=== PATIENT | female | born 1990 | race Caucasian/White ===

== ENCOUNTER 2022-12-24 07:14 | Day surgery (SDC) | payer BC ==
[~2022-12-24] VITALS: Ht 312.4 cm; Wt 75.3 kg
[~2022-12-24 07:14] MED LIST: ATIVAN0.5 MG PO; INTUNIV1 MG PO; PROPRANOLOL HCL10 MG PO
[2022-12-24 07:37] VITALS: BP 119/75
--- NOTE | 2022-12-24 09:16 | NUR ---
12/24/22 0916 Elma Roberts 0912-PATIENT ARRIVED TO PACU ON 2L NC RR EVEN. PATIENT VERY DROWSY AWAKE DENIES PAIN OR NAUSEA. EASILY DOZES BACK TO SLEEP. IVF INFUSING. HOB ELEVATED. ABDOMEN SOFT
[2022-12-24 09:55] VITALS: BP 107/64
--- NOTE | 2022-12-24 10:23 | OR ---
[facility] [address], [place] [address] Signed DATE OF OPERATION: 12/24/2022 SURGEON: Amairani Castillo MD PREOPERATIVE DIAGNOSES: 1. Right upper quadrant abdominal pain. 2. Nausea with annoying stomach pain. 3. Constipation, diarrhea and esophageal dysphagia. 4. Chest pain, palpitations, and anxiety. POSTOPERATIVE DIAGNOSIS: Mild patchy distal gastritis. PROCEDURE: EGD with CLOtest and biopsies of the duodenum, pyloric bulb, antrum, GE junction and midesophagus. ESTIMATED BLOOD LOSS: None. INDICATIONS: Adolfo is a 32-year-old female, who comes an hour [place] a half away from [place], [place]. She is originally from [place], [place]. 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 Her is a manager hematology of a ranch. They are raising their two children. She said the last six months had been challenging with right upper quadrant abdominal pain and nausea. It can be worse after she eats but not always. She mentions chest pain, palpitations, and anxiety attacks. There is mention of constipation, diarrhea, and esophageal dysphagia. She does use lorazepam from time to time for the panic attacks. Eating does not immediately make the pain worse nor does it seem to improve the pain. She had an ultrasound in June of 2022. This was unremarkable. We ordered a HIDA scan with ejection fraction, but for some reason it was not completed. She is yet to receive a phone call from our Radiology department. She told me the lab work has all been negative. Her primary care provider asked her to see me with respect to the above for upper endoscopy. She does not think the symptoms are any better or any worse. In the office, I gave her a pamphlet on upper endoscopy. We reviewed the nature of the test. There is risk including, but not limited to gas bloating, crampy abdominal pain, bleeding, perforation requiring surgery, and missed diagnosis. We also reviewed the need for IV conscious sedation. We thought Versed and fentanyl would be enough. She had expressed understanding and wished to proceed. Electronically Signed By: AMAIRANI CASTILLO MD 12/24/22 1023 PATIENT NAME: ADOLFO RAMIREZ OPERATIVE REPORT DATE OF : [birth year] REPORT #: [id number] PHYSICIAN: AMAIRANI CASTILLO MD PCP: BRITTANY YOU PA-C REPORT IS CONFIDENTIAL AND NOT TO BE RELEASED WITHOUT AUTHORIZATION [facility] [address], [place] [address] Signed PROCEDURE NOTE: Adolfo was taken into our endoscopy suite and placed in the supine semi-recumbent position. The posterior oropharynx was anesthetized with Hurricaine spray. That was challenging enough and made her quite nauseated. We also gave her Zofran 8 mg before we started. She told us she wakes up pretty rough from anesthesia. We gave her 8 mg of Versed and 125 mcg of fentanyl. She was relax but wide awake and able to talk with us and follow directions. Consequently, we called in her anesthesia provider for infusion of propofol with monitored anesthesia care. That worked out nicely. A bite block had been utilized for the case. After infusion of propofol, we were able to advance the scope out in the third portion of the duodenum without difficulty. We took biopsies of the duodenum because of the history of diarrhea. We took an additional biopsy of the pyloric bulb. In the distal half of her stomach, she has some patchy erythematous changes. No ulcerations in the bulb or the stomach. We took a biopsy of the antrum for CLOtest as well as pathologic review. The incisura body and fundus of the stomach were unremarkable. Upon retroflexion of the scope, we do not see a hiatal hernia. The scope was withdrawn up to area of the GE junction, which was compliant without stricture. It appears that her lower esophageal sphincter is fairly short. She had a little irritation around the Z-line. We took a biopsy along the edge of the Z-line. There was no Ross's mucosa, no distal esophagitis. The middle and upper esophagus appeared unremarkable. We went ahead and took a biopsy out of her middle esophagus. After this, the gas was suctioned out and the gastroscope removed. Adolfo tolerated the procedure quite nicely with the help of the propofol. RECOMMENDATIONS: I will see Adolfo back in my office in 7 to 14 days to review her results. We will need to follow up scheduling of the HIDA scan. Currently, it looks like she is having a lot of somatic issues based on her anxiety. Amairani Castillo MD ALB/MODL /[id number] cc: MACIEJ Carney MD Electronically Signed By: AMAIRANI CASTILLO MD 12/24/22 1023 PATIENT NAME: ADOLFO RAMIREZ ALEX OPERATIVE REPORT DATE OF : [birth year] REPORT #: [id number] PHYSICIAN: AMAIRANI CASTILLO MD PCP: BRITTANY YOU PA-C REPORT IS CONFIDENTIAL AND NOT TO BE RELEASED WITHOUT AUTHORIZATION [facility] [address] [place] [place], [place] [address] Signed Copies: AMAIRANI CASTILLO MD ~ Electronically Signed By: AMAIRANI CASTILLO MD 12/24/22 1023 PATIENT NAME: ADOLFO RAMIREZ ALEX OPERATIVE REPORT DATE OF : [birth year] REPORT #: [id number] PHYSICIAN: AMAIRANI CASTILLO MD PCP: BRITTANY YOU PA-C REPORT IS CONFIDENTIAL AND NOT TO BE RELEASED WITHOUT AUTHORIZATION
--- NOTE | 2022-12-29 12:18 | PATH ---
[facility] [address] [facility] [place], [place] [address] Signed SPECIMEN(S): A DUODENAL BIOPSY SPECIMEN(S): B PYLORIC BULB SPECIMEN(S): C ANTRUM SPECIMEN(S): D GE JUNCTION BIOPSY SPECIMEN(S): E MID ESOPHAGEAL BIOPSY SPECIMEN SOURCE: A. DUODENAL BIOPSY B. PYLORIC BULB C. ANTRUM D. GE JUNCTION BIOPSY E. MID ESOPHAGEAL BIOPSY CLINICAL HISTORY: Pre: History of right upper quadrant pain and nausea. Post: Mild gastritis. FINAL PATHOLOGIC DIAGNOSIS: A. Duodenal biopsy - Benign duodenal mucosa, negative for specific diagnostic abnormality. B. Pyloric bulb: - Benign small bowel mucosa with preserved villous architecture, negative for significantly increased chronic epithelial inflammation. C. Antrum, biopsy: - Benign gastric-type mucosa with focal mild chronic inflammation. - Negative for evidence of Helicobacter organisms on routine immunostained sections. D. Gastroesophageal junction: - Benign gastric-type mucosa with reactive features and mild chronic inflammation. - Negative for specialized intestinal metaplasia or dysplasia. E. Mid esophageal biopsy: - Benign esophageal mucosa, negative for increased epithelial eosinophils. JVR:radha:C2NR MICROSCOPIC EXAMINATION: Histologic sections of all submitted blocks are examined by light microscopy. These findings, together with the gross examination, support the pathologic diagnosis. A Helicobacter pylori immunostain is performed with appropriate positive and negative controls on block (C1) and is negative for organisms. JVR:radha PATIENT NAME: ADOLFO RAMIREZ PATHOLOGY DATE OF : [birth year] REPORT #: [id number] PHYSICIAN: ALEXANDER MARROQUIN PCP: BRITTANY YOU PA-C REPORT IS CONFIDENTIAL AND NOT TO BE RELEASED WITHOUT AUTHORIZATION [facility] [address] [place], [place] [address] Signed GROSS DESCRIPTION: A. The specimen, labeled and designated "[place], duodenal biopsy," is received in formalin and consists of one fontenot soft tissue fragment, 0.5 cm. Entirely submitted in (A1). B. The specimen, labeled and designated "[place], pyloric bulb biopsy," is received in formalin and consists of one fontenot soft tissue fragment, 0.6 cm. Entirely submitted in (B1). C. The specimen, labeled and designated "[place], antrum biopsy," is received in formalin and consists of one fontenot soft tissue fragment, 0.5 cm. Entirely submitted in (C1). D. The specimen, labeled and designated "[place], GE junction biopsy," is received in formalin and consists of one fontenot soft tissue fragment, 0.7 cm. Entirely submitted in (D1). E. The specimen, labeled and designated "[place], mid esophageal biopsy," is received in formalin and consists of one fontenot soft tissue fragment, 0.3 cm. Entirely submitted in (E1). VB (under the direct supervision of a pathologist) The Gross Description was prepared using a voice recognition system. The report was reviewed for accuracy; however, sound-alike word errors, addition and/or deletions may occur. If there is any question about this report, please contact Client Services. ADDITIONAL NOTES: Immunohistochemical and/or in situ hybridization studies were performed on this case with the appropriate positive controls that react as expected. This test was developed and its performance characteristics determined by [facility]. It has not been cleared or approved by the U.S. Food and Drug Administration. The FDA has determined that such clearance or approval is not necessary. This test is used for clinical purposes. It should not be regarded as investigational or for research. [facility] is certified under the Clinical Laboratory Improvement Amendments of 1988 (CLIA) as qualified to perform high complexity clinical laboratory testing. This assay has not been validated for specimens that have been decalcified. PERFORMING LABORATORY: The technical component was performed by [facility], [address] [place] [id number] (CLIA# [id number]). Professional interpretation was performed by [facility] [place] [facility], PATIENT NAME: ADOLFO RAMIREZ ANTONNICHOLAS PATHOLOGY DATE OF : [birth year] REPORT #: [id number] PHYSICIAN: [employer] CARA PCP: BRITTANY YOU PA-C REPORT IS CONFIDENTIAL AND NOT TO BE RELEASED WITHOUT AUTHORIZATION [facility] [address], [place] [address] [address] [place] [address] (CLIA#: [id number]). Diagnostician: Houston Bradley MD Pathologist Electronically Signed 12/29/2022 Copies: ~ PATIENT NAME: ADOLFO RAMIREZ PATHOLOGY DATE OF : [birth year] REPORT #: [id number] PHYSICIAN: ALEXANDER PATHOLOGY PCP: BRITTANY YOU PA-C REPORT IS CONFIDENTIAL AND NOT TO BE RELEASED WITHOUT AUTHORIZATION
== END 2022-12-24 10:05 | disposition home or self-care (01) ==
LOC: DS 07:14 → OPS 07:14 → DS 08:15 → OPS 10:05
PROVIDERS: ATTEND Colon & Rectal Surgery
DX: K29.50 Unspecified chronic gastritis without bleeding (principal); K20.90 Esophagitis, unspecified without bleeding; K59.00 Constipation, unspecified; R19.7 Diarrhea, unspecified; R07.89 Other chest pain; R00.2 Palpitations; F41.9 Anxiety disorder, unspecified; R73.03 Prediabetes; Z79.899 Other long term (current) drug therapy
CPT/HCPCS: 00731; 36415; 84703; 87077; J2250; J2405; J2704; J3010; J7121